=== PATIENT | female | born 1985 | race Caucasian/White ===

== ENCOUNTER 2019-03-17 00:56 | Emergency (ER) | payer OTHER ==
[~2019-03-17] VITALS: Ht 157.5 cm; Wt 73.0 kg
[2019-03-17] MEDS ORDERED: SODIUM CHLORIDE 0.9% 1,000 ML IV ONE (03:03)
[2019-03-17] MEDS ORDERED: ONDANSETRON HCL 4MG/2ML INJ IV STA (03:03)
[2019-03-17] MEDS ORDERED: FENTANYL CITRATE/PF 50MCG/ML 2ML VIAL IV ONE ×2 (03:15→06:00)
[2019-03-17 03:31] LABS: BASOPHILS % 0.6 % (0.0-2.0); EOSINOPHILS % 0.1 % (0.0-5.0); HEMATOCRIT. 38.7 % (36.0-48.0); HEMOGLOBIN. 13.1 g/dL (12.0-16.0); LYMPHOCYTES % 12.2 % (20.0-50.0); MEAN CORPUSCULAR HEMOGLOBIN 28.4 pg (28.0-32.0); MEAN CORPUSCULAR VOLUME 83.6 fL (81.0-99.0); MEAN PLATELET VOLUME 8.4 fl (7.4-10.4); MONOCYTES % 6.4 % (2.0-8.0); NEUTROPHILS % 80.7 % (40.0-76.0); PLATELET 308 x1000/uL (130-400); RED BLOOD CELL COUNT 4.62 mill/uL (4.2-5.4); RED CELL DISTRIBUTION WIDTH 15.5 % (11.6-14.6)
[2019-03-17 03:34] LABS: CHLORIDE 101 mEq/L (98-107)
[2019-03-17 03:37] LABS: HCG SCREEN NEGATIVE
[2019-03-17] MEDS ORDERED: IOHEXOL-300 100 ML BOTTLE ONE (04:27)
[2019-03-17] MEDS ORDERED: MORPHINE SULFATE 4 MG/ML CPJ (NOT FOR IM USE) IV ONE (07:15)
[2019-03-17 10:43] VITALS: BP 137/85
== END 2019-03-17 11:17 | disposition short-term general hospital (02) ==
LOC: ER 00:56
DX: S27.321A Contusion of lung, unilateral, initial encounter (principal); S30.1XXA Contusion of abdominal wall, initial encounter; S20.219A Contusion of unspecified front wall of thorax, initial encounter; J45.909 Unspecified asthma, uncomplicated; Z95.1 Presence of aortocoronary bypass graft; Z91.018 Allergy to other foods; V43.62XA Car passenger injured in collision with other type car in traffic accident, initial encounter; Y93.89 Activity, other specified; Y92.411 Interstate highway as the place of occurrence of the external cause
CPT/HCPCS: 36415; 70450; 71045; 71260; 72125; 74177; 80053; 83690; 84703; 85025; 86850; 86900; 86901; 93005; 96374; 96375; 96376; 99285; J2270; J2405; J3010; J7030; Q9967; Z7610